=== PATIENT | male | born 1940 | race African-American/Black ===

== ENCOUNTER 2018-03-07 10:05 | Emergency (ER) | payer OTHER, MEDICAID ==
[~2018-03-07] VITALS: Ht 172.7 cm; Wt 65.6 kg
[2018-03-07 10:53] LABS: BASOPHILS % 0.3 % (0.0-2.0); EOSINOPHILS % 1.4 % (0.0-5.0); HEMATOCRIT. 40.9 % (42.0-52.0); HEMOGLOBIN. 13.9 g/dL (14.0-18.0); LYMPHOCYTES % 38.4 % (20.0-50.0); MEAN CORPUSCULAR HEMOGLOBIN 32.5 pg (28.0-32.0); MEAN CORPUSCULAR VOLUME 95.3 fL (80.0-94.0); MEAN PLATELET VOLUME 7.8 fl (7.4-10.4); MONOCYTES % 10.1 % (2.0-8.0); NEUTROPHILS % 49.8 % (40.0-76.0); PLATELET 159 x1000/uL (130-400); RED BLOOD CELL COUNT 4.29 mill/uL (4.7-6.1); RED CELL DISTRIBUTION WIDTH 15.9 % (11.6-14.6)
[2018-03-07 10:59] LABS: CHLORIDE 107 mEq/L (98-107)
[2018-03-07 11:00] LABS: PROTHROMBIN TIME 10.8 sec (9.4-11.6)
[2018-03-07] MEDS: CLOPIDOGREL 75MG TABLET PO ONE ×2 (11:36→11:49)
[2018-03-07 11:55] VITALS: BP 175/91
[2018-03-07] MEDS ORDERED: CLOPIDOGREL 75MG TABLET PO ONE (12:00)
== END 2018-03-07 11:57 | disposition home or self-care (01) ==
LOC: ER 10:21 → CANBEDREQ 15:51
DX: I63.9 Cerebral infarction, unspecified (principal); E11.65 Type 2 diabetes mellitus with hyperglycemia; I10 Essential (primary) hypertension; H26.9 Unspecified cataract; Z85.89 Personal history of malignant neoplasm of other organs and systems
CPT/HCPCS: 36415; 70450; 70480; 80053; 80061; 82962; 85025; 85610; 93005; 99285

== ENCOUNTER 2019-02-21 13:23 | Emergency (ER) | payer OTHER, MEDICAID ==
[~2019-02-21] VITALS: Ht 177.8 cm; Wt 57.0 kg
[2019-02-21 14:32] LABS: BASOPHILS % 0.2 % (0.0-2.0); EOSINOPHILS % 1.2 % (0.0-5.0); HEMATOCRIT. 33.8 % (42.0-52.0); HEMOGLOBIN. 11.4 g/dL (14.0-18.0); LYMPHOCYTES % 13.4 % (20.0-50.0); MEAN CORPUSCULAR HEMOGLOBIN 31.1 pg (28.0-32.0); MEAN CORPUSCULAR VOLUME 92.4 fL (80.0-94.0); MEAN PLATELET VOLUME 7.3 fl (7.4-10.4); MONOCYTES % 7.1 % (2.0-8.0); NEUTROPHILS % 78.1 % (40.0-76.0); PLATELET 186 x1000/uL (130-400); RED BLOOD CELL COUNT 3.66 mill/uL (4.7-6.1); RED CELL DISTRIBUTION WIDTH 17.3 % (11.6-14.6)
[2019-02-21 14:39] LABS: CHLORIDE 108 mEq/L (98-107)
[2019-02-21 14:41] LABS: INR 1.1; PARTIAL THROMBOPLASTIN TIME 22.9 sec (23.4-31.0); PROTHROMBIN TIME 10.9 sec (9.6-11.0)
[2019-02-21] MEDS ORDERED: SODIUM CHLORIDE 0.9% 500 ML IV NR (14:45)
[2019-02-21 15:13] LABS: CLARITY URINE CLEAR (CLEAR); COLOR URINE YELLOW (YELLOW); KETONES URINE NEGATIVE (NEGATIVE); LEUKOCYTE ESTERASE URINE 2+ (NEGATIVE); NITRITE URINE NEGATIVE (NEGATIVE); OCCULT BLOOD URINE NEGATIVE (NEGATIVE); PH URINE 5.5 (4.5-8.0); PROTEIN URINE NEGATIVE (NEGATIVE); SPECIFIC GRAVITY URINE 1.022 (1.005-1.030)
[2019-02-21] MEDS ORDERED: CEFTRIAXONE 1 G PREMIX 50 ML IV ONE (16:45)
[2019-02-21 17:19] VITALS: BP 144/76
== END 2019-02-21 17:24 | disposition home or self-care (01) ==
LOC: ER 13:23
DX: R55 Syncope and collapse (principal); I10 Essential (primary) hypertension; Z86.73 Personal history of transient ischemic attack (TIA), and cerebral infarction without residual deficits
CPT/HCPCS: 36415; 70450; 71045; 80053; 81003; 82962; 83880; 84484; 85025; 85610; 85730; 87086; 93005; 96361; 96365; 99284; J0696

== ENCOUNTER 2020-03-25 20:56 | Inpatient (IN) | payer OTHER, MEDICAID ==
[~2020-03-25] VITALS: Ht 182.9 cm; Wt 46.3 kg
[2020-03-25] MEDS ORDERED: MORPHINE SULFATE 4 MG/ML CPJ (NOT FOR IM USE) IV STA (21:31)
[2020-03-25] MEDS ORDERED: ONDANSETRON HCL 4MG/2ML INJ IV STA (21:31)
[2020-03-25] MEDS ORDERED: SODIUM CHLORIDE 0.9% 1,000 ML IV ONE (21:31)
[2020-03-25 22:56] LABS: CHLORIDE 107 mEq/L (98-107)
[2020-03-25 23:00] LABS: BASOPHILS % 0.2 % (0.0-2.0); EOSINOPHILS % 0.4 % (0.0-5.0); HEMATOCRIT. 33.3 % (42.0-52.0); LYMPHOCYTES % 8.3 % (20.0-50.0); MEAN CORPUSCULAR HEMOGLOBIN 29.1 pg (28.0-32.0); MEAN CORPUSCULAR VOLUME 88.5 fL (80.0-94.0); MEAN PLATELET VOLUME 6.9 fl (7.4-10.4); MONOCYTES % 14.9 % (2.0-8.0); NEUTROPHILS % 76.2 % (40.0-76.0); PLATELET 178 x1000/uL (130-400); RED BLOOD CELL COUNT 3.76 mill/uL (4.7-6.1); RED CELL DISTRIBUTION WIDTH 25.7 % (11.6-14.6)
[2020-03-25 23:10] LABS: PROTHROMBIN TIME 10.9 sec (9.6-11.0)
[2020-03-25 23:18] LABS: PLATELET ESTIMATE NORMAL
[2020-03-26 00:37] LABS: CLARITY URINE CLEAR (CLEAR); COLOR URINE YELLOW (YELLOW); KETONES URINE TRACE (NEGATIVE); LEUKOCYTE ESTERASE URINE NEGATIVE (NEGATIVE); NITRITE URINE NEGATIVE (NEGATIVE); OCCULT BLOOD URINE NEGATIVE (NEGATIVE); PH URINE 6.5 (4.5-8.0); PROTEIN URINE TRACE (NEGATIVE); SPECIFIC GRAVITY URINE 1.014 (1.005-1.030); UROBILINOGEN URINE 0.2 E.U./dL (0.2-1.0)
[2020-03-26] MEDS ORDERED: CEFTRIAXONE 1 G PREMIX 50 ML IV ONE (02:15)
[2020-03-26] MEDS ORDERED: IOHEXOL-300 100 ML BOTTLE ONE (02:38)
[2020-03-26] MEDS ORDERED: MORPHINE SULFATE 2 MG/ML CPJ (NOT FOR IM USE) IV PRN ×2 (04:00→07:45)
[2020-03-26] MEDS ORDERED: ONDANSETRON HCL 4MG/2ML INJ IV PRN ×3 (04:00→12:30)
[2020-03-26] MEDS ORDERED: SODIUM CHLORIDE 0.9% 1,000 ML IV SCH (07:31)
[2020-03-26] MEDS ORDERED: IPRATROPIUM/ALBUTEROL 0.5-3(2.5)MG/3ML NEB NEB PRN (07:45)
[2020-03-26] MEDS ORDERED: TRAMADOL 50MG TABLET PO PRN ×2 (07:45→16:00)
[2020-03-26] MEDS ORDERED: DOCUSATE SODIUM 100MG CAPSULE PO PRN (07:45)
[2020-03-26] MEDS ORDERED: ACETAMINOPHEN 325MG TABLET PO PRN ×2 (07:45)
[2020-03-26] MEDS ORDERED: CLONIDINE 0.1MG TABLET PO PRN (07:45)
[2020-03-26] MEDS ORDERED: GUAIFENESIN 200MG/10ML SUGAR FREE UDC PO PRN (07:45)
[2020-03-26] MEDS ORDERED: MAGNESIUM/ALUMINUM HYDROXIDE/SIMETHICONE 30ML UDC PO PRN (07:45)
[2020-03-26] MEDS ORDERED: METRONIDAZOLE 500 MG PREMIX 100 ML IV SCH (08:00)
[2020-03-26] MEDS ORDERED: LEVOFLOXACIN 500MG PREMIX 100 ML IV NR (08:00)
[2020-03-26] MEDS ORDERED: ZINC SULFATE 220 MG ( 50 ) CAPSULE PO SCH (09:00)
[2020-03-26] MEDS ORDERED: ASCORBIC ACID 500 MG TABLET PO SCH (09:00)
[2020-03-26] MEDS ORDERED: ENOXAPARIN 40MG/0.4ML SYR SUBCUT SCH (09:00)
[2020-03-26] MEDS ORDERED: FAMOTIDINE 20MG TABLET PO SCH ×2 (09:00→21:00)
[2020-03-26 09:30] VITALS: BP 153/85
[2020-03-26 10:39] LABS: FOLIC ACID (FOLATE) SERUM > 20.00 ng/mL (>5.38)
[2020-03-26 10:50] LABS: VITAMIN B12 SERUM 1646 pg/mL (211-911)
[2020-03-26 12:00] VITALS: BP 122/77
[2020-03-26] MEDS: ENOXAPARIN 40MG/0.4ML SYR SUBCUT SCH ×2 (14:00→15:37)
[2020-03-26] MEDS: METRONIDAZOLE 500 MG PREMIX 100 ML IV SCH ×2 (15:36→22:03)
[2020-03-26 16:00] VITALS: BP 122/83
[2020-03-26] MEDS ORDERED: CAPE500T15 MT (17:33)
[2020-03-26] MEDS ORDERED: DEXA4TAB MT (17:33)
[2020-03-26] MEDS ORDERED: ATOR10TA69 PO (17:33)
[2020-03-26] MEDS ORDERED: ONDA8TAB59 PO (17:33)
[2020-03-26] MEDS ORDERED: PROT20 MT (17:33)
[2020-03-26] MEDS ORDERED: DEXAMETHASONE 4MG TABLET PO SCH (19:15)
[2020-03-26 20:00] VITALS: BP 143/82
[2020-03-26] MEDS ORDERED: ATORVASTATIN CALCIUM 10MG TABLET PO SCH (21:00)
[2020-03-26] MEDS ORDERED: ZOLPIDEM TARTRATE 5MG TABLET PO PRN (21:00)
[2020-03-26] MEDS ORDERED: DEXA4TAB PO (21:40)
[2020-03-26] MEDS: DEXAMETHASONE 4MG TABLET PO SCH (22:53)
[2020-03-26] MEDS: CAPECITABINE 500 MG PO SCH (23:41)
[2020-03-27] VITALS (7 sets, daily range): BP systolic 111–163; BP diastolic 71–86
[2020-03-27] MEDS: METRONIDAZOLE 500 MG PREMIX 100 ML IV SCH ×2 (05:06→14:45)
[2020-03-27] MEDS ORDERED: CEFTRIAXONE 1 G PREMIX 50 ML IV SCH (06:00)
[2020-03-27] MEDS ORDERED: CEFTRIAXONE 1,000 MG in DEXTROSE 5% WATER 50 ML IV SCH (06:00)
[2020-03-27 07:27] LABS: BASOPHILS % 0.9 % (0.0-2.0); EOSINOPHILS % 0.1 % (0.0-5.0); HEMATOCRIT. 30.9 % (42.0-52.0); HEMOGLOBIN. 10.3 g/dL (14.0-18.0); LYMPHOCYTES % 23.7 % (20.0-50.0); MEAN CORPUSCULAR HEMOGLOBIN 29.2 pg (28.0-32.0); MEAN CORPUSCULAR VOLUME 87.4 fL (80.0-94.0); MEAN PLATELET VOLUME 7.3 fl (7.4-10.4); MONOCYTES % 5.3 % (2.0-8.0); PLATELET 171 x1000/uL (130-400); RED BLOOD CELL COUNT 3.54 mill/uL (4.7-6.1)
[2020-03-27 07:40] LABS: CHLORIDE 109 mEq/L (98-107)
[2020-03-27] MEDS ORDERED: TAMSULOSIN HCL 0.4MG SR CAPSULE PO SCH (09:00)
[2020-03-27] MEDS ORDERED: LEVOFLOXACIN 250MG PREMIX 50 ML IV SCH ×2 (09:00)
[2020-03-27] MEDS: DEXAMETHASONE 4MG TABLET PO SCH (09:14)
[2020-03-27] MEDS: CAPECITABINE 500 MG PO SCH ×2 (09:16→16:43)
[2020-03-27] MEDS: ENOXAPARIN 40MG/0.4ML SYR SUBCUT SCH (14:00)
== END 2020-03-27 19:12 | disposition home or self-care (01) | DRG 640 ==
LOC: ER 20:56 → 7WST 03-26 01:28 → ENRESERV 03-26 07:20 → 5WST 03-26 22:39
PROVIDERS: ADMIT Internal Medicine; ATTEND Internal Medicine
DX: E86.0 Dehydration (principal); K85.90 Acute pancreatitis without necrosis or infection, unspecified; C18.9 Malignant neoplasm of colon, unspecified; C78.00 Secondary malignant neoplasm of unspecified lung; K52.9 Noninfective gastroenteritis and colitis, unspecified; G90.8 Other disorders of autonomic nervous system; D64.9 Anemia, unspecified; D72.819 Decreased white blood cell count, unspecified; E78.00 Pure hypercholesterolemia, unspecified; E78.5 Hyperlipidemia, unspecified; R73.9 Hyperglycemia, unspecified; I10 Essential (primary) hypertension; K76.9 Liver disease, unspecified; N40.0 Benign prostatic hyperplasia without lower urinary tract symptoms; Z20.828 Contact with and (suspected) exposure to other viral communicable diseases; Z85.038 Personal history of other malignant neoplasm of large intestine; Z86.73 Personal history of transient ischemic attack (TIA), and cerebral infarction without residual deficits; Z90.49 Acquired absence of other specified parts of digestive tract; Z92.21 Personal history of antineoplastic chemotherapy
CPT/HCPCS: 36415; 71045; 71250; 74177; 80048; 80053; 80061; 81003; 82607; 82746; 83036; 83540; 83550; 83605; 84145; 84153; 84484; 85025; 87635; 93005; 93970; 99285; J0696; J1650; J1956; J2270; J2405; J3490; J7030; J7060; J8540; Q9967; G0103